=== PATIENT | female | born 1970 | race Caucasian/White ===

== ENCOUNTER → 2017-01-17 | Outpatient (CLI) | payer OTHER ==
--- NOTE | 2017-01-17 14:02 | RAD ---
Left lower extremity venous duplex study 01/17/2017 Clinical History: Left leg swelling for a couple years.. Technique: Using a combination of real time ultrasound imaging and color-flow and pulse Doppler imaging techniques along with graded compression and augmentation, duplex evaluation of the deep venous system of the left lower extremity was performed. Multiple images were obtained. Findings: There is no sonographic evidence of deep venous thrombosis involving the visualized deep venous structures of the left lower extremity. Impression: Negative study.
[2017-01-17 15:08] LABS: BASO # 0.1 x10^3/uL (0.0-0.2); BASO % 1 % (0-3); EOS # 0.3 x10^3/uL (0.0-0.7); EOS % 3 % (0-3); HEMOGLOBIN 11.4 g/dL (12.0-15.5); LYMPH # 2.3 x10^3/uL (1.0-4.8); LYMPH % 21 % (24-48); MEAN CORPUSCULAR HEMOGLOBIN 24 pg (25-35); MEAN CORPUSCULAR HGB CONC 32 g/dL (31-37); MEAN CORPUSCULAR VOLUME 76 fL (79-100); MONO # 0.5 x10^3/uL (0.0-1.1); MONO % 4 % (0-9); NEUT % 71 % (31-73); PLATELET COUNT 242 x10^3/uL (140-400); RED BLOOD COUNT 4.71 x10^6/uL (3.50-5.40); RED CELL DISTRIBUTION WIDTH 18.1 % (11.5-14.5); WHITE BLOOD COUNT 11.3 x10^3/uL (4.0-11.0)
== END | disposition home or self-care (01) ==
LOC: US 12:49
PROVIDERS: ATTEND Family Medicine
DX: I82.401 Acute embolism and thrombosis of unspecified deep veins of right lower extremity (principal); I10 Essential (primary) hypertension; D50.0 Iron deficiency anemia secondary to blood loss (chronic); M79.89 Other specified soft tissue disorders
CPT/HCPCS: 36415; 82728; 83540; 83550; 85025; 93971

== ENCOUNTER → 2019-09-02 | Outpatient (CLI) | payer BC, OTHER ==
--- NOTE | 2019-09-02 09:59 | RAD ---
Examination: ABDOMEN COMPLETE History: Abdominal pain Comparison/Correlation: None Findings: Complete abdominal ultrasound is performed. Mild fatty infiltration of the liver is present. Liver length of 21.1 cm is noted. Cholecystectomy noted. Common bile that measures 0.5 cm diameter. Right kidney measures 9.1 cm x 5.7 cm x 4.7 cm the left kidney measures 11.5 cm x 5.7 cm x 5.2 cm. No hydronephrosis. Renal contours are unremarkable. Proximal pancreas is normal. Distal pancreas is unremarkable. Pancreatic duct is partially visualized with diameter up to 0.3 cm. Spleen is identified measuring up to 14.7 cm longitudinal. Atheromatous involvement of the abdominal aorta is noted. No abdominal aortic aneurysm. Partially visualized inferior vena cava is unremarkable. No upper abdominal ascites. Impression: Fatty infiltration of the liver. Mild hepatomegaly. Mild splenomegaly. Electronically signed by: Faustino Yepez MD (09/02/2019 9:56 AM) [id number]
== END ==
LOC: US 09:10
PROVIDERS: ATTEND Internal Medicine Gastroenterology
DX: K76.0 Fatty (change of) liver, not elsewhere classified (principal); Z90.49 Acquired absence of other specified parts of digestive tract
CPT/HCPCS: 76700

== ENCOUNTER 2019-09-15 17:59 | Emergency (ER) | payer BC ==
[~2019-09-15] VITALS: Ht 154.9 cm; Wt 149.2 kg
--- NOTE | 2019-09-15 18:22 | PHYS DOC ---
Past History Past Medical History: Asthma, GERD, P.U.D Past Surgical History: No Surgical History Smoking: Non-smoker Alcohol Use: None Drug Use: None General Adult EDM: Chief Complaint: SHORTNESS OF BREATH HPI: HPI: Patient is a 49 year old female who presents with evaluation of shortness of air that has been progressing for about 1 week. Patient has a history of asthma and is currently out of her inhalers. She denies any recent cough. She had nausea about 2 days ago and some recent dark stools. Patient does have history of acid reflux as well as hemorrhoids. Patient is not in acute distress on arrival. Her primary care physician is Dr. Blanco. Blood pressure was elevated in triage. Oxygen sats above 95% on RA. [] Review of Systems: Review of Systems: Constitutional: Denies fever or chills Eyes: Denies change in visual acuity HENT: Denies nasal congestion or sore throat Respiratory: Denies cough does have shortness of breath Cardiovascular: Denies chest pain or edema GI: Denies abdominal pain, has nausea and vomiting 2 days ago, occasional bloody stools no diarrhea : Denies dysuria Musculoskeletal: Denies back pain or joint pain Integument: Denies rash Neurologic: Denies headache, focal weakness or sensory changes Endocrine: Denies polyuria or polydipsia Lymphatic: Denies swollen glands Psychiatric: Denies depression or anxiety Heart Score: Risk Factors: Risk Factors: DM, Current or recent (<one month) smoker, HTN, HLP, family history of CAD, obesity. Risk Scores: Score 0 - 3: 2.5% MACE over next 6 weeks - Discharge Home Score 4 - 6: 20.3% MACE over next 6 weeks - Admit for Clinical Observation Score 7 - 10: 72.7% MACE over next 6 weeks - Early Invasive Strategies Allergies: Allergies: Allergies Coded Allergies Type Severity Reaction Last Updated Verified No Known Drug Allergies 09/15/19 No Physical Exam: PE: Constitutional: Well developed, well nourished, mild acute distress, non-toxic appearance. [] HENT: Normocephalic, atraumatic, bilateral external ears normal, oropharynx moist, no oral exudates, nose normal. [] Eyes: PERRL, EOMI, conjunctiva normal, no discharge. [] Neck: Normal range of motion, no tenderness, supple, no stridor. [] Cardiovascular:Heart rate regular rhythm, no murmur [] Lungs & Thorax: Bilateral breath sounds scant minimal wheezing, equal breath sounds, no significant conversational dyspnea [] Abdomen: Bowel sounds normal, obese, no tenderness, no masses, no pulsatile masses. [] Skin: Warm, dry, no erythema, no rash. [] Back: No tenderness, no CVA tenderness. [] Extremities: No tenderness, no cyanosis, no clubbing, ROM intact, no edema. [] Neurologic: Alert and oriented X 3, normal motor function, normal sensory function, no focal deficits noted. [] Psychologic: Affect normal, judgement normal, mild anxiousl. [] EKG: EKG: [] Radiology/Procedures: Radiology/Procedures: [address] [address] IMAGING REPORT Signed PATIENT: MEMO HIGGINS ACCOUNT: [id number] : 1970 LOCATION: ER AGE: 49 SEX: F EXAM STATUS: REG ER ORD. PHYSICIAN: ROSA GLASS DO REASON: short of air, asthma PROCEDURE: CHEST AP ONLY Exam: Chest one view INDICATION: Shortness of air TECHNIQUE: Frontal view of the chest Comparisons: None FINDINGS: The cardiomediastinal silhouette and pulmonary vessels are within normal limits. The lung and pleural spaces are clear. IMPRESSION: No acute cardiopulmonary process. Electronically signed by: Kevin White MD (09/15/2019 7:32 PM) [id number] DICTATED AND SIGNED BY: KEVIN WHITE MD DATE: 09/15/191931 CC: KEKE BLANCO MD; ROSA GLASS DO ~ [] Course & Med Decision Making: Course & Med Decision Making Pertinent Labs and Imaging studies reviewed. (See chart for details) 1945 stable, feeling better at this time. Blood pressure is 140s over 80s systolic. Patient has a hemoglobin of 10.5 but the rest of her CBC and chemistries were unremarkable. Lipase was checked and was also normal. X-ray did not show pneumonia. Prescription for albuterol inhaler as well as Medrol Dosepak given close follow-up with a primary care physician recommended Yasmin Disclaimer: Yasmin Disclaimer: This electronic medical record was generated, in whole or in part, using a voice recognition dictation system. Departure Departure: Impression: Primary Impression: Asthma exacerbation Qualified Codes: J45.21 - Mild intermittent asthma with (acute) exacerbation Additional Impression: Gastritis Qualified Codes: K29.50 - Unspecified chronic gastritis without bleeding Disposition: HOME, SELF-CARE Condition: STABLE Referrals: KEKE BLANCO MD (PCP) Patient Instructions: Asthma, Adult, Gastritis, Adult Additional Instructions: Snyder diet, no spicy foods, take medication as directed, call and see your doctor right away in follow-up. Use your inhaler as directed Scripts Albuterol Sulfate (VENTOLIN HFA INHALER) 18 Gm Hfa.aer.ad 1 PUFF IH PRN Q4HRS PRN for FOR ASTHMA, #1 INHALER 0 Refills Prov: ROSA GLASS DO 09/15/19 Methylprednisolone (MEDROL) 4 Mg Tab.ds.pk 1 PKG PO UD for asthma, #1 PKG Prov: ROSA GLASS DO 09/15/19 ROSA GLASS DO Sep 15, 2019 18:22
[2019-09-15 18:34] VITALS: BP 152/81
[2019-09-15 18:46] LABS: BASO % 1 % (0-3); EOS # 0.3 x10^3/uL (0.0-0.7); EOS % 4 % (0-3); HEMATOCRIT 33.7 % (36.0-47.0); HEMOGLOBIN 10.5 g/dL (12.0-15.5); LYMPH # 1.5 x10^3/uL (1.0-4.8); LYMPH % 20 % (24-48); MEAN CORPUSCULAR HEMOGLOBIN 23 pg (25-35); MEAN CORPUSCULAR HGB CONC 31 g/dL (31-37); MEAN CORPUSCULAR VOLUME 75 fL (79-100); MONO # 0.5 x10^3/uL (0.0-1.1); MONO % 6 % (0-9); NEUT # 5.2 x10^3uL (1.8-7.7); NEUT % 69 % (31-73); PLATELET COUNT 234 x10^3/uL (140-400); RED CELL DISTRIBUTION WIDTH 16.8 % (11.5-14.5); WHITE BLOOD COUNT 7.6 x10^3/uL (4.0-11.0)
[2019-09-15 18:52] LABS: CALCIUM 8.6 mg/dL (8.5-10.1); CREATININE 0.8 mg/dL (0.6-1.0); GFR 75.6; POTASSIUM 3.4 mmol/L (3.5-5.1)
[2019-09-15 18:58] LABS: ALBUMIN/GLOBULIN RATIO 0.7 (1.0-1.7); TOTAL BILIRUBIN 0.2 mg/dL (0.2-1.0); TOTAL PROTEIN 7.6 g/dL (6.4-8.2)
--- NOTE | 2019-09-15 19:35 | RAD ---
Exam: Chest one view INDICATION: Shortness of air TECHNIQUE: Frontal view of the chest Comparisons: None FINDINGS: The cardiomediastinal silhouette and pulmonary vessels are within normal limits. The lung and pleural spaces are clear. IMPRESSION: No acute cardiopulmonary process. Electronically signed by: Kevin Raymundo MD (09/15/2019 7:32 PM) [id number]
[2019-09-15] MEDS ORDERED: ALBU2.5V8 IH (19:50)
[2019-09-15] MEDS ORDERED: METH4TAB2 PO (19:50)
== END 2019-09-15 19:55 | disposition home or self-care (01) ==
LOC: ER 17:59
DX: J45.21 Mild intermittent asthma with (acute) exacerbation (principal); K29.50 Unspecified chronic gastritis without bleeding; K21.9 Gastro-esophageal reflux disease without esophagitis; Z87.11 Personal history of peptic ulcer disease
CPT/HCPCS: 36415; 71045; 80053; 83690; 85025; 99284

== ENCOUNTER 2020-07-09 22:29 | Emergency (ER) | payer BC ==
[~2020-07-09] VITALS: Ht 154.9 cm; Wt 151.0 kg
[~2020-07-09 22:29] MED LIST: ALBU2.5V8 IH; METH4TAB2 PO
[2020-07-09] MEDS ORDERED: IV RINGERS SOLUTION,LACTATED 1,000 ML IV ONE (22:45)
--- NOTE | 2020-07-09 22:48 | PHYS DOC ---
Past History Past Medical History: Asthma, GERD, P.U.D Past Surgical History: No Surgical History Smoking: Non-smoker Alcohol Use: None Drug Use: None Adult General Chief Complaint Chief Complaint: DIZZY/LIGHT HEADED HPI HPI Patient is a 50-year-old female with a past medical history significant for asthma, anxiety, depression, and GERD who presents with a chief complaint of lightheadedness and anxiety/panic attacks. States he was doing well until earlier today when she had an anxiety attack. States she took her home benzodiazepine for this but it did not really seem to help with her anxiety. States that her took her for drive to try to relax and this did not help much either. States she took a second dose of her anxiety medicine in approximately 1 hour. States that she got up to go to the restroom and felt a little lightheaded and decided to come to the ED. Denies any syncope, changes in vision, chest pain, shortness of breath, abdominal pain, nausea, vomiting, dysuria, hematuria or blood in the stool. Denies any recent illnesses, fevers, Covid/flu symptoms. States she is approximately eating normal for her. States she drinks a lot of fluid but it is all soda she does not drink any water. Denies any alcohol or drug use. States that she does currently have a urinary tract infection and is on Bactrim, day 3 for this. States that her UTI symptoms have resolved. Denies any hematuria, blood in the stool or hemoptysis/hemat emesis. Review of Systems Review of Systems Review of systems otherwise unremarkable except noted in HPI Allergies Allergies Allergies Coded Allergies Type Severity Reaction Last Updated Verified No Known Drug Allergies 09/15/19 No Physical Exam Physical Exam Constitutional: Well developed, well nourished, no acute distress, non-toxic appearance. [] HENT: Normocephalic, atraumatic, bilateral external ears normal, oropharynx moist, no oral exudates, nose normal. [] Eyes: conjunctiva normal, no discharge. [] Neck: Normal range of motion, no tenderness, supple, no stridor. [] Cardiovascular: Tachycardia, no murmur Lungs & Thorax: Bilateral breath sounds clear to auscultation [] Abdomen: soft, no tenderness, no masses, no pulsatile masses. [] Skin: Patient with psoriasis Back: No tenderness, Extremities: No tenderness, no cyanosis, no clubbing, ROM intact, no edema. [] Neurologic: Alert and oriented X 3, normal motor function, normal sensory function, no focal deficits noted. NIH of 0. Able to ambulate without issue. [] Psychologic: Affect normal, judgement normal, mood normal. [] EKG EKG EKG with a rate of 107, QRS of 88, QTc of 440, no STEMI [] Radiology/Procedures Radiology/Procedures [] Findings: Single upright portable exam of the chest was performed. Heart size and mediastinal contours are within normal limits given technique. The lungs are clear without evidence of focal consolidation. Vascular interstitium is within normal limits. Impression:: Negative portable chest. Electronically signed by: Chris Martinez MD (07/09/2020 11:24 PM) [facility] Heart Score Risk Factors: Risk Factors: DM, Current or recent (<one month) smoker, HTN, HLP, family history of CAD, obesity. Risk Scores: Risk Factors: DM, Current or recent (<one month) smoker, HTN, HLP, family history of CAD, obesity. Course & Med Decision Making Course & Med Decision Making Patient is a 50-year-old female who presents with a chief complaint of anxiety and lightheadedness Vital signs notable for tachycardia to approximately 100-107, otherwise unremarkable. Physical exam noted above. Patient placed on the monitor with IV access established. Started IV fluid resuscitation. EKG noted above and notable only for mild tachycardia. Troponin normal. Laboratory analysis not concerning. Urine with a little hematuria and a few bacteria, but patient is currently on Bactrim for her urinary tract infection. On reassessment patient was feeling much better after resuscitation, with stable vital signs and felt safe to discharge home and asked for discharge paperwork. Advised to follow-up first thing in the morning with primary care physician and set up a follow-up visit within the next week or so. Gave strict return precautions to the ED. Family grateful, verbalized understanding and agreed with plan of discharge. [] Dragon Disclaimer Dragon Disclaimer This electronic medical record was generated, in whole or in part, using a voice recognition dictation system. Departure Departure: Impression: Primary Impression: Anxiety Additional Impressions: Panic attacks Lightheadedness Disposition: 01 DC HOME SELF CARE/HOMELESS Condition: GOOD Referrals: KEKE BLANCO MD (PCP) Patient Instructions: Anxiety and Panic Attacks, [id number], Urinary Tract Infection, [id number] Additional Instructions: Please read all the attached information. Please continue to take your antibiotics for your urinary tract infection as prescribed. Please call your primary care physician first thing in the morning to update on your ED visit and set up a follow-up visit sometime in the next week or 2. Please come back to the ED with new or concerning symptoms as discussed. Problem Qualifiers ROSA MARINELLI MD Jul 09, 2020 22:48
--- NOTE | 2020-07-09 22:59 | EKG ---
[facility] ED [facility] [place] [id number] Test Date: 2020-07-09 Test Time: 22:48:39 Pat Name: MEMO HIGGINS Department: Room: Gender: F Lead Caregiver: : 1970 Requested By: ROSA MARINELLI Order Number: [id number] Reading MD: Measurements Intervals [place] Rate: 107 P: 56 HI: 128 QRS: 23 QRSD: 88 T: 59 QT: 330 QTc: 440 Interpretive Statements SINUS TACHYCARDIA LEFT ATRIAL ABNORMALITY ABNORMAL ECG RI6.02 No previous ECG available for comparison
[2020-07-09 23:00] LABS: BASO # 0.1 x10^3/uL (0.0-0.2); BASO % 1 % (0-3); EOS # 0.4 x10^3/uL (0.0-0.7); EOS % 4 % (0-3); HEMATOCRIT 34.8 % (36.0-47.0); HEMOGLOBIN 10.7 g/dL (12.0-15.5); LYMPH # 2.1 x10^3/uL (1.0-4.8); LYMPH % 22 % (24-48); MEAN CORPUSCULAR HEMOGLOBIN 23 pg (25-35); MEAN CORPUSCULAR HGB CONC 31 g/dL (31-37); MEAN CORPUSCULAR VOLUME 74 fL (79-100); MONO # 0.5 x10^3/uL (0.0-1.1); MONO % 5 % (0-9); NEUT # 6.6 x10^3uL (1.8-7.7); NEUT % 69 % (31-73); PLATELET COUNT 264 x10^3/uL (140-400); RED BLOOD COUNT 4.72 x10^6/uL (3.50-5.40); RED CELL DISTRIBUTION WIDTH 17.1 % (11.5-14.5); WHITE BLOOD COUNT 9.6 x10^3/uL (4.0-11.0)
[2020-07-09] MEDS ORDERED: MIDAZOLAM HCL PF 5 MG/5 ML VIAL. IV ONE (23:00)
[2020-07-09 23:11] LABS: CALCIUM 8.8 mg/dL (8.5-10.1); CREATININE 0.9 mg/dL (0.6-1.0); GFR 65.8; POTASSIUM 3.6 mmol/L (3.5-5.1)
[2020-07-09 23:18] LABS: ALBUMIN 3.2 g/dL (3.4-5.0); ALBUMIN/GLOBULIN RATIO 0.7 (1.0-1.7); MAGNESIUM 2.2 mg/dL (1.8-2.4); TOTAL BILIRUBIN 0.1 mg/dL (0.2-1.0); TOTAL PROTEIN 7.9 g/dL (6.4-8.2)
[2020-07-09 23:24] LABS: ANISOCYTOSIS SLIGHT; HYPOCHROMIA SLIGHT; MICROCYTOSIS SLIGHT; PLT ESTIMATE ADEQUATE (ADEQUATE)
--- NOTE | 2020-07-09 23:27 | RAD ---
Single view chest dated 07/09/2020: Comparison made to 09/15/2019. Clinical Indication: Lightheadedness.. Findings: Single upright portable exam of the chest was performed. Heart size and mediastinal contours are with in normal limits given technique. The lungs are clear without evidence of focal consolidation. Vascul ar interstitium is within normal limits. Impression:: Negative portable chest. Electronically signed by: Chris Martinez MD (07/09/2020 11:24 PM) RICCI
[2020-07-10 00:26] LABS: BILIRUBIN,URINE NEG (NEG); CLARITY,URINE HAZY; COLOR,URINE YELLOW; GLUCOSE,URINE NEG (NEG); NITRITE,URINE NEG (NEG); RBC,URINE >40 /HPF (0-2); UROBILINOGEN,URINE 0.2 mg/dL (0.2 mg/dL)
[2020-07-10 00:27] LABS: BACTERIA,URINE FEW /HPF (0-FEW); SQUAMOUS EPITHELIAL CELL,UR FEW /LPF
[2020-07-10 00:30] VITALS: BP 156/80
== END 2020-07-10 00:38 | disposition home or self-care (01) ==
LOC: ER 22:29
DX: F41.9 Anxiety disorder, unspecified (principal); R42 Dizziness and giddiness; L40.9 Psoriasis, unspecified; J45.909 Unspecified asthma, uncomplicated; K21.9 Gastro-esophageal reflux disease without esophagitis; F32.9 Major depressive disorder, single episode, unspecified; Z87.11 Personal history of peptic ulcer disease
CPT/HCPCS: 36415; 71045; 80053; 81001; 83735; 84443; 84484; 85025; 93005; 96361; 96374; 99285; J2250; J7120

== ENCOUNTER → 2021-03-21 | Outpatient (CLI) | payer BC ==
[~2021-03-21] MED LIST changes: +IOHEXOL 300 MG/ML 75 ML VIAL. IV ONE
--- NOTE | 2021-03-22 10:39 | RAD ---
EXAMINATION: CT ABDOMEN+PELVIS WO+W (CT ABDOMEN/PELVIS WITHOUT AND WITH IV CONTRAST, INCLUDING EXCRET ORY PHASE IMAGING (CT UROGRAM)) CLINICAL HISTORY: Reason: GROSS HEMATURIA. 75MLS OMNI 300 / Spl. Instructions: / History: Hematuria . TECHNIQUE: CT urogram protocol including unenhanced, renal parenchymal phase and excretory phase zan l imaging was obtained following intravenous contrast. CT Dose Reduction Employed: One or more of the following individualized dose reduction techniques wer e utilized for this examination: 1. Automated exposure control 2. Adjustment of the mA and/or kV ac cording to patient size 3. Use of iterative reconstruction technique. COMPARISON: None FINDINGS: KIDNEYS AND URINARY TRACT: Right: No renal calculi or mass. Opacified calyces, renal pelvis, and ureter unremarkable with no micah dence of dilation, filling defect, or stricture. Left: No renal calculi or mass. Opacified calyces, renal pelvis, and ureter unremarkable with no evid ence of dilation, filling defect, or stricture. There is a punctate nonobstructing calculus in the in ferior pole. Bladder: No evidence of filling defect, calculus, or wall thickening. ABDOMEN AND PELVIS: Liver: No mass. Liver is diffusely hypoattenuating consistent with hepatic steatosis and mildly enlar ged. Biliary: No bile duct dilation. Gallbladder surgically absent. Spleen: No mass. Spleen is borderline enlarged measuring 13 cm in maximal AP diameter. Pancreas: No mass or duct dilation. Adrenals: No mass. GI tract: No dilation or wall thickening. Moderate colorectal stool burden. Appendix is not definitel y visualized. Lymph nodes: No abdominal or pelvic lymphadenopathy. Mesentery/Peritoneum: No ascites or mass. Retroperitoneum: No mass or fluid collection. Vasculature: Vasculature appears normal in course and caliber. No abdominal aortic or iliac artery an eurysm. Pelvis: No mass, ascites or fluid collection. Prominent bilateral inguinal lymph nodes likely reactiv e. Multiple pelvic phleboliths. Bones/Soft Tissues: No significant finding. Lung Bases: Unremarkable. IMPRESSION: 1. No genitourinary findings to correlate with patient's hematuria. 2. Hepatic steatosis and mild hepatomegaly. 3. Mild splenomegaly. Electronically signed by: Ronald Castro DO (03/22/2021 10:36 AM) [facility]
== END ==
LOC: CT 16:52
PROVIDERS: ATTEND Family Medicine
DX: N20.0 Calculus of kidney (principal); R16.2 Hepatomegaly with splenomegaly, not elsewhere classified; K76.0 Fatty (change of) liver, not elsewhere classified; I87.8 Other specified disorders of veins; R31.0 Gross hematuria
CPT/HCPCS: 74178; Q9967